=== PATIENT | male | born 1975 | race Caucasian/White ===

== ENCOUNTER 2022-02-27 15:24 | Emergency (ER) | payer SELFPAY ==
[2022-02-27] MEDS ORDERED: Lidocaine 1% PF 2 ML SDV INJECT ONE (15:35)
[2022-02-27] MEDS ORDERED: Diphtheria,Pertussis(Acell),Tetanus Vaccine 0.5 ML Syringe IM ONE (15:35)
[2022-02-27 16:51] VITALS: BP 127/82; PULSE 67
== END 2022-02-27 16:30 | disposition home or self-care (01) ==
LOC: MW.ED 15:24
DX: S61.210A Laceration without foreign body of right index finger without damage to nail, initial encounter (principal); S61.212A Laceration without foreign body of right middle finger without damage to nail, initial encounter; Z23 Encounter for immunization; Z88.0 Allergy status to penicillin; Z88.1 Allergy status to other antibiotic agents; Z88.8 Allergy status to other drugs, medicaments and biological substances; W27.0XXA Contact with workbench tool, initial encounter
CPT/HCPCS: 12002; 90471; 90715; 99282-25